=== PATIENT | male | born 1955 | race Caucasian/White ===

== ENCOUNTER → 2022-03-13 | Outpatient (CLI) | payer MEDICARE, BC ==
[2022-03-13 17:58] LABS: HCT 43.8 % (39.6-50.0); HGB 13.2 g/dL (13.0-17.0); MCH 21.1 pg (27.0-32.0); MCHC 30.1 g/dL (32.0-37.0); Mean Platelet Volume 11.1 fL (9.5-12.2); NRBC Per 100 WBC 0 /100 WBCS (0.0-0.0); Platelet Count 255 X 10*3/uL (140-440); RBC 6.26 X 10*6/uL (4.40-5.60); RDW 15.3 % (11.5-14.5); WBC 6.61 X 10*3/uL (4.50-10.00)
[2022-03-13 18:03] LABS: African American GFR (CKD) 89.2 (60.0-200.0); Anion Gap 6.6 mmol/L (10.00-18.00); BUN/Creat Ratio 13.1 Ratio (12.00-20.00); Blood Urea Nitrogen 13.1 mg/dL (9.0-27.0); Calcium 9.5 mg/dL (8.7-10.3); Carbon Dioxide 28.4 mmol/L (20.0-27.5); Potassium 5.4 mmol/L (3.5-5.5)
[2022-03-13 18:35] LABS: Basophils # (A) 0.04 X 10*3/uL (0.00-0.10); Basophils % (A) 0.6 %; Elliptocytes 2+; Eosinophils # (A) 0.19 X 10*3/uL (0.04-0.35); Eosinophils % (A) 2.9 %; Immature Grans, Automated 0.5 %; Lymphocytes # (A) 2.32 X 10*3/uL (0.90-5.00); Lymphocytes % (A) 35.1 %; Monocytes # (A) 0.58 X 10*3/uL (0.20-1.00); Monocytes % (A) 8.8 %; Neutrophils # (A) 3.45 X 10*3/uL (1.80-7.70); Neutrophils % (A) 52.1 %
== END | disposition home or self-care (01) ==
LOC: LABPAT 10:30
PROVIDERS: ATTEND Urology
DX: Z01.812 Encounter for preprocedural laboratory examination (principal); C61 Malignant neoplasm of prostate
CPT/HCPCS: 80048; 85025

== ENCOUNTER 2022-03-24 09:37 | Day surgery (SDC) | payer MEDICARE, BC ==
[2022-03-20 11:10] VITALS: BMI 30.4
--- NOTE | 2022-03-23 21:35 | P.GSHP ---
History of Present Illness H&P Date: 03/23/22 Chief Complaint: Prostate cancer The patient is a 66-year-old white male found to have an elevated PSA level of 6.13. He has no family history of prostate cancer. ERIC revealed the prostate to be moderately enlarged with smooth. Prostate ultrasound revealed a prostate volume of 47 mL. 4 of 12 biopsies showed [employer] 6 adenocarcinoma. The Polaris score was 4.0. I had a lengthy discussion with the patient regarding alternative treatment options, which include active surveillance, IMRT, and robotic-assisted laparoscopic prostatectomy. He has elected to undergo the latter and comes for this reason. - Genitourinary (Male) Genitourinary: Reports erectile dysfunction, Reports nocturia Past Medical History Past Medical History: Cancer, Hearing Disorder / Deafness Additional Past Medical History / Comment(s): Current prostate cancer. Low BP at times. "Problem with blood cells that carry oxygen, they are smaller than normal." Hard of hearing. History of Any Multi-Drug Resistant Organisms: None Reported Additional Past Surgical History / Comment(s): Colonoscopy X3. Past Anesthesia/Blood Transfusion Reactions: No Reported Reaction Past Psychological History: No Psychological Hx Reported Smoking Status: Former smoker Past Alcohol Use History: Daily Additional Past Alcohol Use History / Comment(s): Quit smoking 12-15 yrs ago. 1- 2 beers daily. Aware no alcohol or Marijuana 24 hrs prior to procedure. Past Drug Use History: Marijuana Additional Drug Use History / Comment(s): Marijuana "once in awhile". - Past Family History Mother Family Medical History: Cancer Additional Family Medical History / Comment(s): Breast cancer. Medications and Allergies Home Medications Medication Instructions Recorded Confirmed Type No Known Home Medications 03/20/22 03/20/22 History Allergies Allergy/AdvReac Type Severity Reaction Status Date / Time No Known Allergies Allergy Verified 03/20/22 10:54 Surgical - Exam - General well developed, well nourished, no distress - Neck no masses, trachea midline - Respiratory normal respiratory effort - Abdomen Abdomen: soft, non tender, no guarding, no rigid, no rebound - Genitourinary normal penis with no external lesions, testicles non-tender - Rectum Rectum: normal sphincter tone, no masses, other (Prostate moderately enlarged but smooth) - Psychiatric oriented to time, oriented to person, oriented to place, speech is normal, memory intact Assessment and Plan (1) Malignant neoplasm of prostate Status: Acute Code(s): C61 - MALIGNANT NEOPLASM OF PROSTATE SNOMED Code(s): 245499763 Plan: Robotic-assisted laparoscopic prostatectomy. The procedure has been reviewed in detail with the patient. He is aware of potential risks, which include anesthesia, bleeding, infection, intestinal injury (which may require a colostomy), ureteral injury, swelling of the penis post-operatively, bladder neck contracture, urethral stricture, lymphocele, post-operative ileus, thrombophlebitis, wound separation, and possible urinary fistula. In addition, I went into great detail concerning the possibility of postop urinary incontinence, which may fail to resolve. He reports difficulty maintaining an erection, and is aware of the fact that this will worsen. He has also been advised of the possibility of treatment failure, and the possible need for adjuvant therapy.
[~2022-03-24 09:37] MED LIST: DEXAMETHASONE SOD PHOSPHATE 4 MG/ML 1 ML VIAL IV ONE; HEPARIN SODIUM,PORCINE/PF 5,000 UNIT/0.5 ML SYRINGE SQ PRN; HYDROmorphone 0.5 MG/0.5 ML SYRINGE IVP PRN; LIDOCAINE 1% (10MG/ML) FOR IV START INTRADERMA PRN; ONDANSETRON 4 MG/2 ML VIAL IVP ONE
[2022-03-24] MEDS ORDERED: LACTATED RINGERS 1,000 ML IV ONE ×2 (10:15)
[2022-03-24] MEDS ORDERED: ROCURONIUM 10 MG/ML (5 ML VIAL) IV ONE (12:53)
[2022-03-24] MEDS ORDERED: LIDOCAINE 2% INJ 20 MG/ML (2 ML VIAL) ONE (12:53)
[2022-03-24] MEDS ORDERED: HYDROmorphone (PF) 1 MG/ML ONE (12:53)
[2022-03-24] MEDS ORDERED: PROPOFOL 10 MG/ML 20 ML VIAL IV ONE (12:53)
[2022-03-24] MEDS ORDERED: NEOSTIGMINE 1 MG/ML 10 ML VIAL ONE (12:53)
[2022-03-24] MEDS ORDERED: MIDAZOLAM 2 MG/2 ML VIAL ONE (12:53)
[2022-03-24] MEDS ORDERED: GLYCOPYRROLATE 0.2 MG/ML 2 ML VIAL ONE (12:53)
[2022-03-24] MEDS ORDERED: fentaNYL (PF) 50 MCG/ML 2 ML AMP ONE (12:53)
[2022-03-24] MEDS ORDERED: BUPIVACAINE (PF) 0.25% 30 ML VIAL SQ ONE (13:26)
[2022-03-24] MEDS ORDERED: ACETAMINOPHEN TAB 325 MG TAB PO PRN (16:30)
[2022-03-24] MEDS ORDERED: HYDROmorphone 1 MG/ML 1 ML SYRINGE IVP PRN (16:30)
[2022-03-24] MEDS ORDERED: ONDANSETRON 4 MG/2 ML VIAL IVP PRN (16:30)
--- NOTE | 2022-03-24 16:30 | P.OP ---
Date of Procedure: 03/24/22 Preoperative Diagnosis: Adenocarcinoma of the prostate Postoperative Diagnosis: Same Procedure(s) Performed: Robotic-assisted laparoscopic prostatectomy (RALP) Anesthesia: HAI Surgeon: Dino Echavarria Estimated Blood Loss (ml): 100 IV fluids (ml): 1,000 Pathology: other (Prostate and seminal vesicles) Condition: stable Disposition: PACU Indications for Procedure: The patient is a 66-year-old white male found to have an elevated PSA level of 6.13. He has no family history of prostate cancer. ERIC revealed the prostate to be moderately enlarged with smooth. Prostate ultrasound revealed a prostate volume of 47 mL. 4 of 12 biopsies showed [place] 6 adenocarcinoma. The Polaris score was 4.0. I had a lengthy discussion with the patient regarding alternative treatment options, which include active surveillance, IMRT, and robotic-assisted laparoscopic prostatectomy. He has elected to undergo the latter and comes for this reason. Operative Findings: No evidence of extraprostatic disease. Description of Procedure: The patient was taken in the operating room and placed in the supine position. He was carefully positioned on a beanbag for stability. The abdomen and external genitalia were prepped and draped sterilely. A Nielsen catheter was inserted. The Veress needle was passed through the anterior abdominal wall immediately cephalad to the umbilicus, and insufflation was performed to a pressure of 20 mm Hg. Once insufflation was performed, the Veress needle was removed and a supraumbilical incision was made, through which an 8 mm camera port was placed. Under camera guidance, 3 8 mm robotic ports were placed, 2 on the left and one on the right. A 12 mm port was placed on the right lateral side for use as an senior it assistant port. A 5 mm port was placed to the right of the camera port for suction. The patient was placed in Trendelenburg position, and docking was then performed to the da Clarence system utilizing a 4-arm approach. The abdomen was examined. The sigmoid colon was mobilized out of the pelvis. The peritoneum was incised lateral to the medial umbilical ligaments bilaterally, exposing the pubis. The peritoneum was then incised across the midline, allowing the bladder flap to be taken down. The endopelvic fascia was opened bilaterally, and muscular attachments from the urogenital diaphragm were swept away from the prostate. The vesical neck was incised transversely, down to the lumen. The Nielsen catheter was brought out through the anterior vesical neck incision and was used for traction. The posterior aspect of the vesical neck was incised, such that the full-thickness of the vesical neck was divided. The anterior layer of the Denonvilliers fascia was incised, exposing the vas deferens. Each were isolated and divided. Next, each of the seminal vesicles were dissected away from adjacent tissues, and vascular attachments were cauterized and divided. The posterior leaf of Denonvilliers fascia was incised transversely, allowing entry into the plane between the prostate and rectum. With lateral spreading, this plane was developed down to the apex. This exposed the lateral vascular pedicles bilaterally. These were clipped and divided in an antegrade fashion, down to the apex. The use of electrocautery was avoided to prevent thermal damage to the nerves. The neurovascular bundles were preserved bilaterally. The remaining apical attachments were swept away from the prostate. The dorsal venous complex was incised, as well as periurethral tissue. At this point, only the urethra remained intact. This was transected immediately distal to the prostatic apex using cold scissors. The specimen was placed within a specimen bag. The dorsal venous complex was sutured using a V-Loc suture in a running fashion. A second V-Loc suture was then used to place the Deondre stitch, incorporating the rhabdosphincter and the edge of Denonvilliers fascia. This allowed the bladder to be taken down to the urethra, leaving the vesical neck immediately adjacent to the urethra. A bladder neck sparing procedure was performed, as the caliber of the vesical neck approximated the caliber of the urethra. The vesicourethral anastomosis was then performed using a V-Loc suture in a running fashion. After completing the anastomosis, an 18-Greek Nielsen catheter was placed and approximately 150 mL of 0.9 normal saline were instilled into the bladder. No extravasation of irrigant from the vesicourethral anastomosis was noted. Hemostasis was noted at this time to be excellent, and it was thus felt that a drain was unnecessary. Surgicel was placed over the vascular pedicles bilaterally. Tisseel was sprayed into the pelvis over the vascular pedicles, dorsal vein, and vesicourethral anastomosis. The patient was returned to the supine position. Undocking was performed, and the specimen bag sutures were passed through the camera port. After removing all the ports and allowing all of the CO2 to be released from the peritoneal cavity, the camera port incision was enlarged to allow removal of the surgical specimen. The fascia of this incision was then closed using 0 PDS suture in a running fashion. Each of the skin incisions were then closed using 4-0 Monocryl suture in a subcuticular fashion. Marcaine was injected at each of the incision sites. Dermabond was applied to each incision. The Nielsen catheter was conne cted to gravity drainage. All sponge and needle counts were correct. The patient tolerated the procedure well was taken to the recovery room in stable condition.
[2022-03-24] MEDS: KETOROLAC 15 MG/ML 1 ML VIAL IVP PRN (17:30)
[2022-03-24] MEDS ORDERED: ARTIFICIAL TEARS-HYPROMELLOSE DROPS 15 ML BTL LEFT EYE PRN (20:08)
[2022-03-25] MEDS: KETOROLAC 15 MG/ML 1 ML VIAL IVP PRN ×2 (01:49→09:41)
[2022-03-25] MEDS: HEPARIN SODIUM,PORCINE/PF 5,000 UNIT/0.5 ML SYRINGE SQ SCH ×2 (01:50→09:42)
[2022-03-25] MEDS: LACTATED RINGERS 1,000 ML IV SCH ×2 (04:12→05:37)
[2022-03-25] MEDS: DEXTROSE 5%-0.45% NACL 1,000 ML IV SCH ×3 (04:14→09:41)
[2022-03-25 07:57] VITALS: RESP 16
--- NOTE | 2022-03-25 11:05 | P.DS ---
Providers Attending physician: Dino Echavarria Primary care physician: [facility] Hospital Course: This is a 66-year-old male with history of prostate cancer. Underwent a robotic prostatectomy by Dr. Echavarria on March 24. Please see operative dated March 24 for surgery detail. Patient did well in the postoperative period patient was discharged home on postop day #1, at time of discharge he was tolerating a diet, ambulating, pain was well-controlled Plan - Discharge Summary Discharge Rx Participant: Yes New Discharge Prescriptions: New Ciprofloxacin HCl [Cipro] 250 mg PO Q12HR #6 tablet Ketorolac [Toradol] 10 mg PO Q6HR PRN #10 tab PRN Reason: Pain Discharge Medication List Ciprofloxacin HCl [Cipro] 250 mg PO Q12HR #6 tablet 03/24/22 [Rx] Ketorolac [Toradol] 10 mg PO Q6HR PRN #10 tab 03/24/22 [Rx] Follow up Appointment(s)/Referral(s): Dino Echavarria MD [STAFF PHYSICIAN] - 04/04/22 Activity/Diet/Wound Care/Special Instructions: Discharge home with Nielsen catheter. Instruct patient to use overnight drainage bag as well as urinary leg bag. Okay to shower. Diet as tolerated. No lifting, driving, or strenuous activity. Reassure patient that abdominal wall ecchymosis and penoscrotal swelling are normal. Instruct patient to begin taking antibiotics one day prior to Nielsen catheter removal. Discharge Disposition: HOME SELF-CARE
[2022-03-25 13:45] VITALS: BP 96/59; PULSE 68; TEMP 98.5
== END 2022-03-25 15:10 | disposition home or self-care (01) ==
LOC: OR 09:37 → 4SSUR 16:45 → OR 03-25 15:10
PROVIDERS: ATTEND Urology
DX: C61 Malignant neoplasm of prostate (principal); Z87.891 Personal history of nicotine dependence; N52.9 Male erectile dysfunction, unspecified; Z80.3 Family history of malignant neoplasm of breast; Z85.46 Personal history of malignant neoplasm of prostate; Z90.79 Acquired absence of other genital organ(s)
CPT/HCPCS: 86900; 86901; 86850; 55866; J1100; J0690 ×2; J2405; J1885 ×2; J1170; J1644 ×2

== ENCOUNTER → 2022-08-11 | Outpatient (CLI) | payer MEDICARE, BC | END | disposition home or self-care (01) | LOC: LABWHC1 09:28 | PROVIDERS: ATTEND Urology | DX: C61 Malignant neoplasm of prostate (principal) | CPT/HCPCS: 36415; 84153 ==

== ENCOUNTER → 2023-02-13 | Outpatient (CLI) | payer MEDICARE, BC | END | disposition home or self-care (01) | LOC: LABWHC1 10:20 | PROVIDERS: ATTEND Urology | DX: C61 Malignant neoplasm of prostate (principal) | CPT/HCPCS: 36415; 84153 ==

== ENCOUNTER → 2024-03-03 | Outpatient (CLI) | payer MEDICARE, BC | END | disposition home or self-care (01) | LOC: LABWHC1 10:41 | PROVIDERS: ATTEND Urology | DX: C61 Malignant neoplasm of prostate (principal) | CPT/HCPCS: 36415; 84153 ==